=== PATIENT | female | born 1955 | race African-American/Black ===

== ENCOUNTER 2018-08-09 15:16 | Emergency (ER) | payer OTHER ==
[~2018-08-09] VITALS: Ht 165.1 cm; Wt 70.3 kg
[2018-08-09 20:00] VITALS: BP 141/84
== END 2018-08-09 20:46 | disposition home or self-care (01) ==
LOC: ER 15:16 → EDBD 15:16 → ER 20:46
DX: T58.91XA Toxic effect of carbon monoxide from unspecified source, accidental (unintentional), initial encounter (principal); Y92.89 Other specified places as the place of occurrence of the external cause
CPT/HCPCS: 36600; 82805; 93005; 94761